=== PATIENT | female | born 1975 | race Caucasian/White ===

== ENCOUNTER → 2017-06-27 | Outpatient (CLI) | payer BC ==
--- NOTE | 2017-06-27 18:35 | MR ---
EXAMINATION TYPE: MR knee RT wo con DATE OF EXAM: 06/27/2017 COMPARISON: NONE HISTORY: 41 year-old female right knee pain, popped while walking 3-4 weeks ago TECHNIQUE: Multiplanar, multisequence imaging of the right knee is performed without IV contrast. FINDINGS: The ACL, PCL, and LCL complex are intact. There is some intermediate signal within the femoral attach ment fibers of the MCL suggesting remote sprain. The MCL is otherwise intact. Multilocular parameniscal cyst in front of the anterior root of the medial meniscus measuring 1 cm wi th a small oblique tear at the anterior root. Prominent degenerative signal within the body and poste rior horn medial meniscus without discrete meniscal tear seen. Mild to moderate irregular cartilage loss along the mid weightbearing aspect of the medial femoral co ndyle. Lateral meniscus appears intact and overall lateral compartment articular cartilage volume is maintai ashish though degenerative spurring is present. There is moderate volume loss of articular cartilage and moderate cartilage irregularity along both p atellar facets in the patellofemoral compartment with some adjacent 9 mm and smaller loose bodies in the lateral gutter of the suprapatellar pouch. Marginal spurring in the patellofemoral compartment wi th moderate irregular cartilage loss along the lateral trochlear facet as well. Small knee joint effusion. No significant Pantoja's cyst. Prominent 2.1 cm multilocular ganglion cyst at the origin of the lateral head gastrocnemius. Extensor mechanism is intact. There is focal edema in Hoffa's fat located inferior and lateral to the patella. Additional edema in the suprapatellar fat pad. Normal popliteal artery anatomy in muscle bulk. No suspicious bone marrow replacement. IMPRESSION: 1. Small oblique tear at the anterior root of the medial meniscus with adjacent 1 cm parameniscal cys t. Additional degenerative signal posterior horn and body of the medial meniscus. Mild overall medial compartmental osteoarthrosis. 2. Moderate overall patellofemoral compartment osteoarthrosis. 9 mm and smaller loose bodies in the lateral gutter of the suprapatellar pouch. 3. Focal edema in Hoffa's fat inferior and lateral to the patella and also within the suprapatellar f at pad. Findings can be seen in the setting of fat pad impingement syndrome.
== END | disposition home or self-care (01) ==
LOC: RADMRIMAIN 14:06
PROVIDERS: ATTEND Orthopaedic Surgery
DX: S83.241A Other tear of medial meniscus, current injury, right knee, initial encounter (principal); M17.11 Unilateral primary osteoarthritis, right knee

== ENCOUNTER → 2017-07-21 | Outpatient (CLI) | payer BC ==
[2017-07-21 10:56] LABS: Basophils # (A) 0.1 k/uL (0-0.2); Basophils % (A) 1 %; Eosinophils # (A) 0.3 k/uL (0-0.7); Eosinophils % (A) 3 %; HCT 43.2 % (34.0-46.0); HGB 14.2 gm/dL (11.4-16.0); Lymphocytes # (A) 2.7 k/uL (1.0-4.8); Lymphocytes % (A) 30 %; MCHC 32.9 g/dL (31.0-37.0); MCV 91.2 fL (80.0-100.0); Mean Platelet Volume 6.8; Monocytes # (A) 0.5 k/uL (0-1.0); Monocytes % (A) 6 %; Neutrophils # (A) 5.2 k/uL (1.3-7.7); Neutrophils % (A) 59 %; Platelet Count 299 k/uL (150-450); RBC 4.74 m/uL (3.80-5.40); RDW 12.8 % (11.5-15.5); WBC 8.9 k/uL (3.8-10.6)
[2017-07-21 11:06] LABS: Potassium 4.4 mmol/L (3.5-5.1)
== END | disposition home or self-care (01) ==
LOC: LABPAT 10:28
PROVIDERS: ATTEND Orthopaedic Surgery
DX: Z01.812 Encounter for preprocedural laboratory examination (principal); M23.91 Unspecified internal derangement of right knee
CPT/HCPCS: 36415; 80051; 85025

== ENCOUNTER 2017-07-24 06:49 | Day surgery (SDC) | payer BC ==
[2017-07-20 15:19] VITALS: BMI 30.8
--- NOTE | 2017-07-23 09:18 | HP ---
HISTORY AND PHYSICAL CHIEF COMPLAINT: Right knee pain. 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 She notes it popped and gave out while walking down a hallway at work. She notes intermittent giving way and locking since. It has been worse with weightbearing activities. She has tried medications with only partial temporary relief. PAST MEDICAL HISTORY: Past medical history is significant for depression. PAST SURGICAL HISTORY: Past surgical history is significant for tonsillectomy and extensor tendon repair of her hand. FAMILY HISTORY: Family history is significant for cancer and hypertension. SOCIAL HISTORY: Social history is significant for 1/2 pack per day tobacco use and social alcohol use. REVIEW OF SYSTEMS: Sixteen-point review of systems otherwise reviewed and is noncontributory. CURRENT MEDICATIONS: 1. Celexa. 2. Flexeril. 3. Ibuprofen. 4. Xanax. ALLERGIES: She denies drug allergies. PHYSICAL EXAMINATION: On examination, the patient is approximately 5 feet 10 inches, 230 pounds with a BMI of 33. HEENT exam is nonfocal. Neck is supple. She has painless passive motion of the right hip. Straight leg raise is negative. Active motion right knee -6 to 125 degrees of flexion. She has a moderate effusion. She has a palpable loose body along the lateral patellofemoral gutter. She is tender about the medial joint line and medial patellar facet. Collaterals are stable, Chuck's negative, Yolande's elicits medial pain. Her distal neurovascular exam appears to be intact in the right lower extremity. MRI report for the right knee 06/17/2017 shows an anterior medial meniscal tear and cyst along with a loose body in the lateral patellofemoral gutter. IMPRESSION: 1. Right knee internal derangement with symptomatic medial meniscal tear. 2. Right knee symptomatic loose body. RECOMMENDATIONS: I talked to the patient at length regarding her condition and treatment options. At this point, she is having persistent pain and mechanical symptoms that limit her. After thorough discussion, she opts to proceed with surgery. We will plan to proceed with arthroscopic evaluation with possible partial medial meniscectomy in addition to removal of loose body. Risks and benefits were discussed at length in layman's terms. We will likely perform that as an outpatient procedure. MMODL / IJN: [id number] /
[~2017-07-24 06:49] MED LIST: DEXAMETHASONE SOD PHOSPHATE 10 MG/ML 1 ML VIAL IV ONE; LACTATED RINGERS 1,000 ML IV SCH; LIDOCAINE 1% 20 ML VIAL (10MG/ML) FOR IV START INTRADERMA PRN; MIDAZOLAM 2 MG/2 ML VIAL IV PRN; MORPHINE SULFATE 4 MG/ML SYRINGE IV PRN; ONDANSETRON 4 MG/2 ML VIAL IVP ONE; SCOPOLAMINE 1.5MG/72HR PATCH TRANSDERM ONE; ceFAZolin IN SWFI 2 GM/20 ML SYRINGE IVP ONE
[2017-07-24 07:46] VITALS: RESP 16
[2017-07-24] MEDS ORDERED: PROPOFOL 10 MG/ML 20 ML VIAL IV ONE (07:58)
[2017-07-24] MEDS ORDERED: SUCCINYLCHOLINE CHLORIDE 100 MG/5 ML SYR IV ONE (07:58)
[2017-07-24] MEDS ORDERED: fentaNYL (PF) 50 MCG/ML 2 ML AMP ONE (07:58)
[2017-07-24] MEDS ORDERED: LIDOCAINE 1% INJ 10MG/ML (20 ML MDV) ONE (07:58)
[2017-07-24] MEDS ORDERED: MIDAZOLAM 2 MG/2 ML VIAL ONE (07:58)
[2017-07-24] MEDS ORDERED: EPINEPHrine (PF) 1 ML in SODIUM CHLORIDE 0.9% IRRIGATIO 3,000 ML IRRIGATION ONE (08:23)
--- NOTE | 2017-07-24 09:06 | P.OP ---
Date of Procedure: 07/24/17 Preoperative Diagnosis: Right knee internal derangement Postoperative Diagnosis: Right knee posterior lateral meniscal tear/grade 2/3 chondral injury distal medial femoral condyle/grade 2 chondral injury medial patellar facet/multiple loose bodies Procedure(s) Performed: Right knee arthroscopic partial lateral meniscectomy/medial femoral chondrectomy /patellar chondroplasty/loose body removal 1 x 1 x 0.75 cm Anesthesia: GETA Surgeon: Ramón Dhillon Estimated Blood Loss (ml): 10 Pathology: none sent Condition: stable Disposition: PACU Indications for Procedure: The patient's a 41-year-old female who presents with progressive right knee pain and mechanical symptoms despite conservative measures. Clinically she was noted to have evidence of a symptomatic loose body. A discussion of the risks and benefits of operative intervention versus continued conservative measures was made with patient. She opted to proceed with surgery. Operative risks to include infection, neurovascular injury, development of blood clots, possible incomplete resolution of symptoms, possible worsening symptoms and need for subsequent procedures was discussed. Informed consent was obtained. Operative Findings: As below Description of Procedure: The patient was brought to the operating room, and after induction of general anesthesia examined the right knee. Collaterals were stable, Chuck was negative, and posterior drawer was negative. The right lower extremity was prepped and draped in normal fashion. A superior lateral portal was made through a 3 mm skin incision superior and lateral to the patella. This was used for outflow. A lateral portal was made through a 5 mm vertical skin incision lateral to the patella tendon above the joint line. Diagnostic arthroscopy was performed. A medial portals made just medial to the patella tendon above the joint line. On inspection the medial compartment, the medial meniscus was stable and intact. A grade 2-3 chondral injury was noted involving the central portion of the distal medial femoral condyle. Loose chondral flaps were noted. These were contoured with both a shaver and an ablator. On inspection of the notch, anterior cruciate ligament appeared to be intact. On inspection of the lateral compartment, a small flap tear was noted involving the posterior most aspect of the lateral meniscus in the white -white junction. This to be back to stable base with a motorized shaver. The remaining lateral meniscus was stable and intact. Minimal degenerative changes involving the chondral surface in the lateral compartment was noted. On inspection patellofemoral articulation, a grade 2-3 chondral injury was noted involving medial patella facet with a loose chondral flap. This was debrided back to stable base with motorized shaver. On inspection the gutters, multiple loose bodies were noted the largest of which was 1 x 1 x 0.75 cm. I extended the medial incision to facilitate extraction of this fragment. It appeared be cartilaginous. A second small loose body was removed in a similar fashion. The knee was then thoroughly irrigated. The portals were closed with Steri-Strips. A sterile dressing was applied in addition to a compression stocking. Patient was awoken from general anesthesia and transferred to recovery room in good condition. Blood loss was estimated at 10 mL. No complications were incurred.
[2017-07-24 09:07] VITALS: TEMP 97.9
[2017-07-24] MEDS ORDERED: ONDANSETRON 4 MG/2 ML VIAL IVP ONE (09:07)
[2017-07-24] MEDS ORDERED: KETOROLAC 30 MG/ML 1 ML VIAL IVP ONE (09:07)
[2017-07-24] MEDS ORDERED: MORPHINE SULFATE 4 MG/ML SYRINGE IVP ONE ×2 (09:14→09:19)
[2017-07-24] MEDS ORDERED: MEPERIDINE 50 MG/ML SYRINGE IVP ONE ×2 (09:33→09:43)
[2017-07-24] MEDS ORDERED: LACTATED RINGERS 1,000 ML IV ONE (09:50)
[2017-07-24] MEDS ORDERED: HYDROcodone/APAP 5-325MG 1 EACH TAB PO ONE (10:35)
[2017-07-24 10:58] VITALS: BP 140/87; PULSE 84
== END 2017-07-24 11:26 | disposition home or self-care (01) ==
LOC: OR 06:49
PROVIDERS: ATTEND Orthopaedic Surgery
DX: S83.281A Other tear of lateral meniscus, current injury, right knee, initial encounter (principal); X58.XXXA Exposure to other specified factors, initial encounter; M23.41 Loose body in knee, right knee; F32.9 Major depressive disorder, single episode, unspecified; F17.210 Nicotine dependence, cigarettes, uncomplicated; Z79.1 Long term (current) use of non-steroidal anti-inflammatories (NSAID); Z79.899 Other long term (current) drug therapy
CPT/HCPCS: 81025; 29881; J2250; J2270; J1100; J2175; J2405; J0171; J2001; J3010; J1885; J0330; J2704; J0690

== ENCOUNTER 2020-10-14 12:10 | Emergency (ER) | payer OTHER ==
[2020-10-14 12:16] VITALS: BP 151/85; PULSE 89; RESP 20; TEMP 98.3
[2020-10-14] MEDS ORDERED: KETOROLAC 15 MG/ML 1 ML VIAL IM STA (12:29)
[2020-10-14] MEDS ORDERED: ORPHENADRINE 30 MG/ML 2 ML VIAL IM STA (12:29)
[2020-10-14] MEDS ORDERED: CYCLOBENZAPRINE 10MG STARTER 3 TAB BTL PO STA (12:36)
--- NOTE | 2020-10-14 12:36 | ED ---
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 Patient reports that she was trying to get away from a combative Patient who was attempting to kick her. Patient reports that she then jumped backwards causing her back to tighten up and spasm. Patient states that she was able to restrain the Patient. She does state that after this episode she noticed that any movement se was causing her back seize up and had pain with bending over. Patient reports that she is supposed to work the next 3 days. Patient states that she does have history of a slipped disc in the past which was treated with ultrasound therapy. She reports that her pain today seems more muscle spasm rather than her previous slipped disc. - Related Data Home Medications Medication Instructions Recorded Confirmed ALPRAZolam [Xanax] 0.25 mg PO HS PRN 07/20/17 07/20/17 Citalopram Hydrobromide [CeleXA] 20 mg PO DAILY 07/20/17 07/20/17 Cyclobenzaprine [Flexeril] 10 mg PO DAILY PRN 07/20/17 07/20/17 Ibuprofen [Motrin] 800 mg PO Q6H PRN 07/20/17 07/20/17 Previous Rx's Medication Instructions Recorded Hydrocodone/Acetaminophen [Lander 1 each PO Q6HR PRN #20 tab 07/24/17 5-325] Cyclobenzaprine [Flexeril] 10 mg PO TID #15 tab 10/14/20 Ketorolac [Toradol] 10 mg PO Q6HR #12 tab 10/14/20 Allergies Allergy/AdvReac Type Severity Reaction Status Date / Time No Known Allergies Allergy Verified 10/14/20 12:16 Review of Systems ROS Statement: Those systems with pertinent positive or pertinent negative responses have been documented in the HPI. ROS Other: All systems not noted in ROS Statement are negative. Past Medical History Past Medical History: No Reported History History of Any Multi-Drug Resistant Organisms: None Reported Past Surgical History: Tonsillectomy Additional Past Surgical History / Comment(s): RT EXTENSOR TENDON REPAIR Past Anesthesia/Blood Transfusion Reactions: No Reported Reaction Past Psychological History: Anxiety, Depression Smoking Status: Never smoker Past Alcohol Use History: Occasional Past Drug Use History: None Reported - Past Family History Mother Family Medical History: No Reported History General Exam - General Exam Comments Initial Comments: 45-year-old female. Alert and oriented. Limitations: no limitations General appearance: alert, in no apparent distress Head exam: Present: atraumatic, normocephalic, normal inspection Eye exam: Present: normal appearance, PERRL, EOMI. Absent: scleral icterus, conjunctival injection, periorbital swelling ENT exam: Present: normal exam, mucous membranes moist Neck exam: Present: normal inspection. Absent: tenderness, meningismus, lymphadenopathy Respiratory exam: Present: normal lung sounds bilaterally. Absent: respiratory distress, wheezes, rales, rhonchi, stridor Cardiovascular Exam: Present: regular rate, normal rhythm, normal heart sounds. Absent: systolic murmur, diastolic murmur, rubs, gallop, clicks GI/Abdominal exam: Present: soft, normal bowel sounds. Absent: distended, tenderness, guarding, rebound, rigid Extremities exam: Present: normal inspection, full ROM, normal capillary refill. Absent: tenderness, pedal edema, joint swelling, calf tenderness Back exam: Present: normal inspection, tenderness (Is tenderness over the right thoracic paraspinal muscles. No spinal tenderness. ). Absent: full ROM Neurological exam: Present: alert, oriented X3, CN II-XII intact Psychiatric exam: Present: normal affect, normal mood Skin exam: Present: warm, dry, intact, normal color. Absent: rash Course Vital Signs 10/14/20 12:13 Temperature 98.3 F Pulse Rate 89 Respiratory 20 Rate Blood Pressure 151/85 O2 Sat by Pulse 99 Oximetry Medical Decision Making - Medical Decision Making 35-year-old female presents to the ER after attempting to jump away from a combative Patient. She then resulted in back muscle spasm over the right side. She has no spinal tenderness. She has no saddle anesthesia or other red flag symptoms. Discussed and this time to treat the Patient conservatively with anti-inflammatory medication muscle relaxers. She was provided heating pack emergency department. I did advise the Patient week and have her have time off. Patient is advised to follow-up with orthopedic family centered specialist symptoms continue to persist.. Disposition Clinical Impression: Back spasm Disposition: HOME SELF-CARE Condition: Good Instructions (If sedation given, give patient instructions): Muscle Spasm (ED) Additional Instructions: Patient advised to alternate between heat and ice to help with back pain. Recommended following up with orthopedic back specialist. Patient to take anti- inflammatory medication and muscle relaxers as prescribed. Return to emergency department if any alarming signs or symptoms occur. Prescriptions: Cyclobenzaprine [Flexeril] 10 mg PO TID #15 tab Ketorolac [Toradol] 10 mg PO Q6HR #12 tab Is patient prescribed a controlled substance at d/c from ED?: No Referrals: Alesha Ogden MD [Primary Care Provider] - 1-2 days Luis E Coughlin DO [Doctor of Osteopathic Medicine] - 1-2 days Time of Disposition: 12:35
== END 2020-10-14 12:57 | disposition home or self-care (01) ==
LOC: EC 12:10
DX: M62.830 Muscle spasm of back (principal)
CPT/HCPCS: 99283; 96372 ×2; J2360; J1885

== ENCOUNTER → 2020-10-16 | Outpatient (CLI) | payer OTHER ==
--- NOTE | 2020-10-16 13:19 | XR ---
EXAM TYPE: LUMBAR SPINE X RAY SERIES COMPARISON: NONE HISTORY: Pain TECHNIQUE: 4 views are submitted. FINDINGS: Alignment is anatomic. The pedicles are intact. The transverse processes are intact. There is marianne re degenerative disc disease and facet arthropathy L5-S1. IMPRESSION: 1. Severe degenerative disc disease L5-S1.
--- NOTE | 2020-10-16 13:20 | XR ---
EXAMINATION TYPE: XR thoracic spine complete DATE OF EXAM: 10/16/2020 COMPARISON: NONE HISTORY: Pain TECHNIQUE: 3 views submitted FINDINGS: Alignment is anatomic. There is no compression deformities. Hypertrophic and degenerative change of the spine. IMPRESSION: 1. Multilevel degenerative disc disease.
== END | disposition home or self-care (01) ==
LOC: RADXRMAIN 12:44
PROVIDERS: ATTEND Emergency Medicine
DX: M51.34 Other intervertebral disc degeneration, thoracic region (principal); M51.37 Other intervertebral disc degeneration, lumbosacral region; M47.817 Spondylosis without myelopathy or radiculopathy, lumbosacral region
CPT/HCPCS: 72072; 72100

== ENCOUNTER → 2022-07-30 | Outpatient (CLI) | payer BC ==
--- NOTE | 2022-07-31 08:48 | MM ---
Reason for Exam: Screening (asymptomatic). Baseline mammogram. Patient History: Menarche at age 14. First Full-Term at age 22. Premenopausal. Currently using Hormonal Contraceptives, starting at age 20. Maternal aunt had breast cancer under age 50. Last menstrual period: 07/29/2022 Risk Values: Kaur 5 year model risk: 0.7%. NCI Lifetime model risk: 8.7%. Prior Study Comparison: Patient's first Mammogram. No prior studies available for comparison. Tissue Density: There are scattered fibroglandular densities. Findings: Analyzed By CAD. There is no suspicious group of microcalcifications or new suspicious mass in either breast. Bilateral intramammary lymph nodes identified. Overall Assessment: Benign, BI-RAD 2 Management: Screening Mammogram of both breasts in 1 year. A clinical breast exam by your physician is recommended on an annual basis and results should be correlated with mammographic findings. Electronically signed and approved by: Farhad Mcgregor D.O.
== END | disposition home or self-care (01) ==
LOC: RADMAMWWP 08:41
PROVIDERS: ATTEND Obstetrics & Gynecology
DX: Z12.31 Encounter for screening mammogram for malignant neoplasm of breast (principal); Z80.3 Family history of malignant neoplasm of breast
CPT/HCPCS: 77063; 77067

== ENCOUNTER → 2022-10-28 | Outpatient (CLI) | payer BC ==
[2022-10-29 05:23] LABS: HCT 40.9 % (37.2-46.3); HGB 13.6 d/dL (12.0-15.0); MCH 31.9 pg (27.0-32.0); MCHC 33.3 d/dL (32.0-37.0); NRBC Per 100 WBC 0 X 10*3/uL (0.00-0.01); Platelet Count 284 X 10*3/uL (140-440); RBC 4.26 X 10*6/uL (4.10-5.20); RDW 13.1 % (11.5-14.5); WBC 7.08 X 10*3/uL (4.50-10.00)
== END | disposition home or self-care (01) ==
LOC: LABPAT 13:20
PROVIDERS: ATTEND Obstetrics & Gynecology
DX: Z01.812 Encounter for preprocedural laboratory examination (principal); I10 Essential (primary) hypertension; N92.1 Excessive and frequent menstruation with irregular cycle; R94.31 Abnormal electrocardiogram [ECG] [EKG]
CPT/HCPCS: 85027; 93005

== ENCOUNTER 2022-10-31 09:09 | Day surgery (SDC) | payer BC ==
[~2022-10-31 09:09] MED LIST changes: -DEXAMETHASONE SOD PHOSPHATE 10 MG/ML 1 ML VIAL IV ONE; -LIDOCAINE 1% 20 ML VIAL (10MG/ML) FOR IV START INTRADERMA PRN; -MIDAZOLAM 2 MG/2 ML VIAL IV PRN; -MORPHINE SULFATE 4 MG/ML SYRINGE IV PRN; +Pre Op ABX Message 1 EACH MISC MISCELLANE ONE; +SCOPOLAMINE 1 MG/72 HR PATCH TRANSDERM ONE; -SCOPOLAMINE 1.5MG/72HR PATCH TRANSDERM ONE; -ceFAZolin IN SWFI 2 GM/20 ML SYRINGE IVP ONE
[2022-10-31] MEDS ORDERED: LACTATED RINGERS 1,000 ML IV ONE (09:24)
[2022-10-31] MEDS ORDERED: DEXAMETHASONE SOD PHOSPHATE 4 MG/ML 1 ML VIAL IVP ONE (09:55)
[2022-10-31] MEDS ORDERED: MIDAZOLAM 2 MG/2 ML VIAL IVP ONE (10:13)
[2022-10-31] MEDS ORDERED: MIDAZOLAM 2 MG/2 ML VIAL ONE (10:30)
[2022-10-31] MEDS ORDERED: KETOROLAC 15 MG/ML 1 ML VIAL ONE (10:30)
[2022-10-31] MEDS ORDERED: SUCCINYLCHOLINE CHLORIDE 200 MG/10 ML VIAL IV ONE (10:30)
[2022-10-31] MEDS ORDERED: fentaNYL (PF) 50 MCG/ML 2 ML AMP ONE (10:30)
[2022-10-31] MEDS ORDERED: PROPOFOL 10 MG/ML 20 ML VIAL IV ONE (10:30)
[2022-10-31] MEDS ORDERED: LIDOCAINE 2% INJ 20 MG/ML (2 ML VIAL) ONE (10:30)
[2022-10-31] MEDS ORDERED: KETOROLAC 15 MG/ML 1 ML VIAL IVP PRN (11:24)
[2022-10-31] MEDS ORDERED: diphenhydrAMINE 50 MG/ML 1 ML VIAL IVP PRN (11:24)
[2022-10-31] MEDS ORDERED: IBUPROFEN 600 MG TAB PO PRN (11:24)
[2022-10-31] MEDS ORDERED: METOCLOPRAMIDE 5 MG/ML 2 ML VIAL IVP PRN (11:24)
[2022-10-31] MEDS ORDERED: SIMETHICONE 80 MG CHEWABLE PO PRN (11:24)
[2022-10-31] MEDS ORDERED: ONDANSETRON 4 MG/2 ML VIAL IVP PRN (11:24)
[2022-10-31] MEDS: HYDROmorphone 0.5 MG/0.5 ML SYRINGE IVP PRN ×3 (11:28→12:09)
[2022-10-31 11:30] VITALS: TEMP 97.4
[2022-10-31] MEDS ORDERED: LACTATED RINGERS 1,000 ML IV SCH (11:30)
--- NOTE | 2022-10-31 11:34 | P.OP ---
Date of Procedure: 10/31/22 Preoperative Diagnosis: #1. Menometrorrhagia #2. Fibroid uterus Postoperative Diagnosis: Same Procedure(s) Performed: #1. Diagnostic hysteroscopy #2. Failed endometrial ablation Anesthesia: FINN Surgeon: Jerel Landeros Estimated Blood Loss (ml): 5 Urine output (ml): 50 Pathology: none sent Condition: stable Disposition: PACU Operative Findings: Preoperative pelvic examination demonstrated a roughly 5-6 week anteverted mobile normal shaped uterus though there was a palpable right lateral roughly 3- 4 cm fibroid. Intraoperatively, the cervix sounded to approximate 4 synovators while uterus sounded to approximately 10 cm. Dilation was carried out without difficulty to admit the diagnostic hysteroscope which was placed and the cavity and the and the cavity distended with normal saline. The bilateral tubal ostia were seen and there was no evidence of pathology though there was a slight bulge on the right side of the uterus consistent with the location of the fibroid. The patient was noted to have a relatively patulous cervix. The settings for the NovaSure tool where a length of 6 cm, a width of 3.57 m for a total power of 119 W. Multiple attempts were made to pass the cavity check with repositioning of the tenaculum and trial of a Allis clamp. The tool was exchanged for a new tool which was replaced within the cavity and multiple attempts were made with the second tool with inability to pass the cavity check. Attempts were made to seal the cervix using a petroleum gauze around the flange which failed as well. After approximately a dozen attempts to pass the cavity check between the 2 tools, the procedure was abandoned. There was no concern for the possibility of uterine perforation as the scope was replaced after multiple failures and the cavity appears entirely intact. The failure was thought to be secondary to the patulous nature of the cervix and inability to seal it adequately to contain the carbon dioxide. The patient is a borderline candidate for vaginal hysterectomy should become necessary. Description of Procedure: The patient was prepped and draped in usual fashion after general endotracheal anesthesia was induced by the anesthesiologist. A weighted speculum was placed and the bladder drained of approximately 50 mL of clear gauri urine. The anterior lip of the cervix was grasped with a single-tooth tenaculum which time the cervix was noted to be quite patulous. The uterus and cervix are sounded to 10 cm and 4 cm respectively. Serial dilation was carried out without difficulty to admit the diagnostic hysteroscope was placed within the in vitro cavity and the cavity distended with normal saline. The findings are as noted above with bilateral tubal ostia seen and no evidence of pathology. The scope was set aside and the NovaSure tool placed into the endometrial cavity, opened, and seated well. The settings are again as noted above with a length of 6.0 cm, a width of 3.57 m for a total power of 119 W. Several attempts were made to pass the cavity check applying pressure to the flange on the tool. After it failed, temperature made to reposition the single-tooth tenaculum on the anterior lip of the cervix to provide a better seal which also failed. The tool was replaced with a new NovaSure tool which was again placed into the cavity, opened, and seated well. The settings were unchanged. Multiple further attempts were made to pass the cavity check which failed. A petroleum gauze was applied firmly around the flange and the flange again reapplied to the cervix. This attempt failed as well. Allis clamps were applied to the anterior and posterior lip of the cervix in an attempt to better seal its which also failed. After perhaps a dozen attempts to pass the cavity check between both tools, the procedure was abandoned secondary to inability to pass the cavity check. There was no concern for uterine perforation has dilation was entirely uncomplicated. The diagnostic scope was replaced within the endometrial cavity and the cavity reexamined. There was no evidence of any damage within the uterine cavity. All instrumentation was removed. There was no significant ongoing bleeding from either the cervix or the multiple areas where the cervix was grasped with tenaculum and or Allis clamp. The patient is a borderline candidate for vaginal hysterectomy should it become necessary. Estimated blood loss for the case was approximate 5 mL. The only complication was the inability to complete the procedure. All sponge, instrument, and needle counts were correct. The patient tolerated the procedure well and proceeded to the recovery room in stable condition.
[2022-10-31 11:48] VITALS: RESP 16
[2022-10-31 13:00] VITALS: BP 125/83; PULSE 79
[2022-11-01] MEDS ORDERED: ACETAMINOPHEN TAB 325 MG TAB PO PRN (11:25)
== END 2022-10-31 13:20 | disposition home or self-care (01) ==
LOC: OR 09:09
PROVIDERS: ATTEND Obstetrics & Gynecology
DX: D25.9 Leiomyoma of uterus, unspecified (principal); I10 Essential (primary) hypertension; K21.9 Gastro-esophageal reflux disease without esophagitis; Z79.899 Other long term (current) drug therapy
CPT/HCPCS: 58555; 81025; J2250; J0330; J1100; J2405; J3010; J1885; J2704; J1170; J2001

== ENCOUNTER → 2023-04-15 | Outpatient (CLI) | payer BC ==
[2023-04-15 15:30] LABS: Blood Urea Nitrogen 10.4 mg/dL (9.0-27.0); Carbon Dioxide 24.7 mmol/L (21.6-31.8); Chloride 104 mmol/L (96-109); Glucose 89 mg/dL (70-110); Potassium 4.2 mmol/L (3.5-5.5); Sodium 139 mmol/L (135-145)
[2023-04-15 15:36] LABS: Basophils # (A) 0.08 X 10*3/uL (0.00-0.10); Basophils % (A) 1.4 %; Eosinophils # (A) 0.24 X 10*3/uL (0.04-0.35); Eosinophils % (A) 4.2 %; HCT 36.7 % (37.2-46.3); Lymphocytes % (A) 35.3 %; MCH 28.9 pg (27.0-32.0); MCHC 32.7 g/dL (32.0-37.0); MCV 88.4 FL (80.0-97.0); Mean Platelet Volume 9.4 FL (9.5-12.2); Monocytes # (A) 0.45 X 10*3/uL (0.20-1.00); Monocytes % (A) 7.9 %; NRBC Per 100 WBC 0 X 10*3/uL (0.00-0.01); Neutrophils # (A) 2.89 X 10*3/uL (1.80-7.70); Platelet Count 266 X 10*3/uL (140-440); RBC 4.15 X 10*6/uL (4.10-5.20); RDW 11.7 % (11.5-14.5); WBC 5.67 X 10*3/uL (4.50-10.00)
== END | disposition home or self-care (01) ==
LOC: LABPAT 11:33
PROVIDERS: ATTEND Obstetrics & Gynecology
DX: Z01.812 Encounter for preprocedural laboratory examination (principal); I10 Essential (primary) hypertension
CPT/HCPCS: 36415; 80051; 82565; 82947; 84520; 85025; 86850; 86900; 86901; 87086

== ENCOUNTER 2023-04-21 10:45 | Day surgery (SDC) | payer BC ==
[2023-04-16 11:01] VITALS: BMI 27.2
--- NOTE | 2023-04-21 07:37 | HP ---
HISTORY AND PHYSICAL DATE OF SCHEDULED SURGERY: 04/21/2023. HISTORY OF PRESENT ILLNESS: The patient is a 47-year-old 2, para 2-0-0-2, who presents to the office with a history of menometrorrhagia. She had a NovaSure ablation attempted several months ago, at which time we were unable to complete the procedure secondary to inability to pass the cavity check. The thought was that it was secondary to a patulous cervix. She continued to have irregular and heavy bleeding thereafter and had a trial of oral contraceptive pills, which caused greater than 2 weeks of continuous heavy bleeding. She has requested definitive therapy with hysterectomy, and previous examination has demonstrated the robotic approach to be most indicated. PAST MEDICAL HISTORY: Significant for hypertension. PAST SURGICAL HISTORY: Significant for diagnostic hysteroscopy, LEEP procedure, and a failed NovaSure ablation as noted above. There were no anesthetic concerns. OBSTETRICAL HISTORY: 2, para 2-0-0-2 with 2 term vaginal deliveries. GYNECOLOGIC HISTORY: Unremarkable with no history of any infections to include STDs. FAMILY HISTORY: Noncontributory. SOCIAL HISTORY: The patient is and denies any major social concerns. She is a nonsmoker. MEDICATIONS: Include: 1. Metoprolol ER 25 mg daily. 2. Ozempic injection subcutaneously weekly. ALLERGIES: No known drug allergies. REVIEW OF SYSTEMS: Confined to history of present illness. PHYSICAL EXAMINATION: VITAL SIGNS: Stable. The patient is afebrile. GENERAL: This is a well-developed, well-nourished white female, in no acute distress. HEART: Regular rhythm and rate without murmur. LUNGS: Clear to auscultation bilaterally in all foote. ABDOMEN: Nondistended, has normoactive bowel sounds, soft, nontender, and without any palpable masses, hepatosplenomegaly, or hernias. EXTREMITIES: Without any cyanosis, clubbing, or edema and are nontender to palpation bilaterally. PELVIC: Demonstrates normal external genitalia and BUS with normal vaginal mucosa and cervix. There is no cervical motion tenderness. Uterus is 5-6 weeks in size, anteverted, mobile, relatively normal in shape. There is a palpable right lateral 3-4 cm fibroid. The adnexa are normal nontender without mass bilaterally. ASSESSMENT AND PLAN: Menometrorrhagia: As noted above, attempted ablation failed and she has also failed medical management and therefore is requesting definitive treatment with hysterectomy. Examination bears out the best approach to be robotic. As a result, we will proceed with da Tami robotically-assisted laparoscopic hysterectomy with bilateral salpingectomy and diagnostic cystoscopy. The risks and complications of the procedure have been thoroughly discussed including the risks for bleeding, bleeding requiring transfusion, infection, and injury to local structures to specifically include the bowel, bladder, and ureters. We also went on to discuss injury unique to da Tami surgery to include thermal injury and vaginal cuff dehiscence. She has understood all of this and has agreed to proceed. We are scheduled for the above procedure on the morning of 04/21/2023. MMODL / IJN: [id number] /
[~2023-04-21 10:45] MED LIST changes: +DEXAMETHASONE SOD PHOSPHATE 4 MG/ML 1 ML VIAL IV ONE; +HYDROmorphone 0.5 MG/0.5 ML SYRINGE IVP PRN; -LACTATED RINGERS 1,000 ML IV SCH; +LIDOCAINE 1% (10MG/ML) FOR IV START INTRADERMA PRN; -Pre Op ABX Message 1 EACH MISC MISCELLANE ONE; +droPERidol 5 MG/2 ML VIAL IVP ONE
[2023-04-21] MEDS: LACTATED RINGERS 1,000 ML IV SCH ×2 (12:46→16:50)
[2023-04-21] MEDS: FAMOTIDINE 20 MG/2 ML VIAL IV ONE ×2 (13:05→17:46)
[2023-04-21] MEDS ORDERED: ROCURONIUM 10 MG/ML (5 ML VIAL) IV ONE (13:39)
[2023-04-21] MEDS ORDERED: KETOROLAC 30 MG/ML 1 ML VIAL ONE (13:39)
[2023-04-21] MEDS ORDERED: HYDROmorphone (PF) 1 MG/ML ONE (13:39)
[2023-04-21] MEDS ORDERED: SUCCINYLCHOLINE CHLORIDE 200 MG/10 ML VIAL IV ONE (13:39)
[2023-04-21] MEDS ORDERED: GLYCOPYRROLATE 0.2 MG/ML 2 ML VIAL ONE (13:39)
[2023-04-21] MEDS ORDERED: MIDAZOLAM 2 MG/2 ML VIAL ONE (13:39)
[2023-04-21] MEDS ORDERED: ACETAMINOPHEN IV (For NPO) 1,000 MG/100 ML VIAL ONE (13:39)
[2023-04-21] MEDS ORDERED: NEOSTIGMINE 1 MG/ML 10 ML VIAL ONE (13:39)
[2023-04-21] MEDS ORDERED: PROPOFOL 10 MG/ML 20 ML VIAL IV ONE (13:39)
[2023-04-21] MEDS ORDERED: fentaNYL (PF) 50 MCG/ML 2 ML AMP ONE (13:39)
[2023-04-21] MEDS ORDERED: LIDOCAINE 1% INJ 10MG/ML (20 ML MDV) ONE (13:39)
[2023-04-21] MEDS ORDERED: BUPIVACAINE (PF) 0.25% 10 ML VIAL SQ ONE ×2 (14:18→15:54)
[2023-04-21] MEDS ORDERED: diphenhydrAMINE 50 MG/ML 1 ML VIAL IVP PRN (15:48)
[2023-04-21] MEDS ORDERED: ONDANSETRON 4 MG/2 ML VIAL IVP PRN (15:48)
[2023-04-21] MEDS ORDERED: METOCLOPRAMIDE 5 MG/ML 2 ML VIAL IVP PRN (15:48)
[2023-04-21] MEDS ORDERED: KETOROLAC 15 MG/ML 1 ML VIAL IVP PRN (15:48)
[2023-04-21] MEDS ORDERED: SIMETHICONE 80 MG CHEWABLE PO PRN (15:48)
[2023-04-21] MEDS ORDERED: Acetaminophen-Codeine 300-30mg TAB PO PRN (15:48)
--- NOTE | 2023-04-21 16:00 | P.OP ---
Date of Procedure: 04/21/23 Preoperative Diagnosis: 1. Menometrorrhagia #2. Fibroid uterus Postoperative Diagnosis: Same Procedure(s) Performed: #1. Da Tami robotically assisted laparoscopic hysterectomy with bilateral salpingectomy #2. Diagnostic cystoscopy Anesthesia: FINN Surgeon: Jerel Landeros House Mother #1: Kimberli Oshea Estimated Blood Loss (ml): 50 IV fluids (ml): 1,000 Urine output (ml): 100 Pathology: other (Uterus and bilateral fallopian tubes) Condition: stable Disposition: PACU Operative Findings: Intraoperatively, the uterus was noted to be significantly larger than appreciated on exam. It did sound to approximately 11 cm. The tubes and ovaries were normal to inspection. The uterus itself was quite bulky with likely multiple fibroids. There was no evidence of any other pathology in the pelvis to include endometriosis. The bladder was undamaged both from a cystoscopic and laparoscopic perspective and the bilateral ureteral hemlocks were noted to be peristalsing under cystoscopy. Description of Procedure: The patient was prepped and draped in usual fashion after general endotracheal anesthesia was administered by the anesthesiologist. A weighted speculum was placed and the anterior lip of the cervix grasped with a single-tooth tenaculum. Uterus sounded to 10-11 cm. Serial dilation was carried out to admit a [facility] uterine manipulator with a large cervical cup. This was placed in standard fashion. The bladder was then catheterized with a Trujillo catheter. I attended to the abdomen at which time a site was selected approximately 3-4 cm is above the umbilicus in the midline where an 8 mm incision was made in the transverse plane. An 8 mm optical da Tami trocar was placed under direct visualization and the pneumoperitoneum instilled. The patient was placed in steep Trendelenburg positioning and the table lowered completely. A site was selected approximately 12 cm lateral to the optical port and 3-4 cm inferior to it in the right lower quadrant where an 8 mm incision was made in a transverse plane allowing insertion of an 8 mm da Tami trocar under direct visualization. A myringotomy trocar was placed in the left lower quadrant. The distance between the left quadrant in optical trocar was divided in half and a site selected approximately 4 cm above the optical trocar where a 10 mm incision was made and a 1011 assistant professor of theater port inserted under direct visualization without difficulty. The robot was then docked to the patient in the left arm was loaded with a [place] bipolar cautery forceps while the right arm was loaded with a mono and bipolar cautery scissors. The left fallopian tube was divided from the ovary beneath it to the level of the uterus at which time the utero-ovarian ligament and round ligament were thoroughly cauterized and cut under cautery with the ovary left in situ. The uterine vasculature was skeletonized on this side. The bladder peritoneum was elevated and opened to the midline. The underlying tissues were then dissected sharply using the bipolar cautery scissors. The blood vessels were noted and cauterized to some extent. Prior to finishing the pedicles on the left hand side the decision was made to proceed to the right hand side where similar operations were carried out without difficulty. The bladder peritoneum was connected anteriorly and the underlying tissues dissected sharply with the bipolar cautery scissors. The bladder was then easily reflected distally and the vaginal cup was easily noted. After ensuring that the uterine vasculature was cauterized and divided on both sides, the vaginal cuff was opened sharply with the bipolar cautery scissors and the anterior cuff and there was continued around following the line of the cervical cup to the posterior and then back around to the anterior dividing the uterus from the patient. There was some difficulty in delivering the uterus as it was significantly bulkier than anticipated. Ultimately it was able to be delivered intact through the vagina. Then returned to the console and replaced the scissors with a laparoscopic suturing device. A stitch of 0 Stratafix suture was passed and the abdomen and the vaginal cuff was closed in standard fashion from angle to angle with to return stitches on the left side. Thorough irrigation was carried out and hemostasis was noted to be excellent. Then returned to the patient and remove the Trujillo catheter, placed a diagnostic cystoscope and filled the bladder with sterile water. The dome of the bladder wasn't damaged both from the cystoscopic and laparoscopic perspective. Both ureteral adnexa were examined and noted to be peristalsing normally. All instrumentation was then removed and the Trujillo catheter replaced. The robot was undocked and the trochars were removed after evacuating the entire pneumoperitoneum. The 4 incisions were closed with interrupted subcuticular stitches of 4-0 Vicryl followed by placement of half-inch Steri-Strips placed with Mastisol. The incisions were infused with a total of 10 mL of quarter percent Marcaine equally distributed among the 4 incisions. Estimated blood loss for the case was approximately 50 mL. There were no complications. All sponge, instrument, and needle counts were correct. The patient tolerated the procedure well and proceeded to the recovery room in stable condition.
[2023-04-21] MEDS ORDERED: ONDANSETRON 4 MG/2 ML VIAL IVP ONE (16:53)
[2023-04-21] MEDS: Acetaminophen-Codeine 300-30mg TAB PO PRN (20:23)
[2023-04-21] MEDS ORDERED: HYDROmorphone 0.5 MG/0.5 ML SYRINGE IVP PRN (20:45)
[2023-04-21] MEDS: SENNOSIDES-DOCUSATE SODIUM 1 EACH TAB PO SCH (22:57)
[2023-04-22] MEDS: IBUPROFEN 600 MG TAB PO PRN ×2 (05:23→11:30)
[2023-04-22] MEDS: LACTATED RINGERS 1,000 ML IV SCH ×2 (05:26→08:12)
[2023-04-22 07:39] LABS: Basophils % (A) 0 %; Eosinophils # (A) 0.1 k/uL (0-0.7); Eosinophils % (A) 1 %; HCT 32.5 % (34.0-46.0); Lymphocytes % (A) 21 %; MCH 29.6 pg (25.0-35.0); MCHC 33.9 g/dL (31.0-37.0); MCV 87.5 fL (80.0-100.0); Mean Platelet Volume 7.7; Monocytes # (A) 0.6 k/uL (0-1.0); Monocytes % (A) 6 %; Neutrophils % (A) 71 %; Platelet Count 222 k/uL (150-450); RBC 3.71 m/uL (3.80-5.40); RDW 12.2 % (11.5-15.5); WBC 9.9 k/uL (3.8-10.6)
[2023-04-22] MEDS: SENNOSIDES-DOCUSATE SODIUM 1 EACH TAB PO SCH (08:22)
[2023-04-22] MEDS: Acetaminophen-Codeine 300-30mg TAB PO PRN (08:22)
[2023-04-22 08:55] VITALS: BP 101/67; PULSE 86; RESP 16; TEMP 98
--- NOTE | 2023-04-22 09:22 | P.DS ---
Providers Expected date of discharge: 04/22/23 Attending physician: Jerel Landeros Primary care physician: Karel Alatorre - Discharge Diagnosis(es) (1) Fibroid uterus Current Visit: Yes Status: Acute (2) Menometrorrhagia Current Visit: Yes Status: Acute Hospital Course: The patient is a 47-year-old 2 para 2001 who presented the office with ongoing history of menometrorrhagia and known fibroids. She had an attempt at NovaSure endometrial ablation which failed as we're unable to pass the cavity check. She continued to have bleeding, she requested definitive therapy and was thought to be best a candidate for a da Tami approach. She was taken to the operating room where she underwent da Tami robotically assisted laparoscopic hysterectomy with bilateral salpingectomy and diagnostic cystoscopy in an uncomplicated fashion. Her postoperative course was unremarkable with vital signs remaining stable and her temperature was afebrile throughout. She did have moderate discomfort but also declined to have Duramorph for pain relief. She was deemed stable for discharge by the afternoon of postoperative day #1 and was discharged home to follow-up in the office in 2 weeks for incision checks and 8 weeks routinely. Discharge instructions included calling for any significantly increased bleeding, fever, incisional complaints, GI complaints, bladder complaints, or anything else that concerned her. She was most important instructed to have nothing in the vagina for at least 8 weeks time to include intercourse. She understood all of her instructions and agrees follow up as noted above. Discharge medications included any normal home medications as well as a prescription for Tylenol 3, 1-2 by mouth every 6 hours when necessary pain, #20 dispensed with no refills. Discharge hemoglobin and hematocrit were 11.0 and 32.5 respectively. Procedures: #1. Da Tami robotically assisted laparoscopic hysterectomy with bilateral salpingectomy #2. Diagnostic cystoscopy Patient Condition at Discharge: Stable Plan - Discharge Summary Discharge Rx Participant: No New Discharge Prescriptions: No Action Pantoprazole [Protonix] 40 mg PO DAILY Varenicline [Chantix Continuing Pack] 1 mg PO DIRECTED Metoprolol Succinate (ER) [Toprol Xl] 50 mg PO DAILY Discharge Medication List Metoprolol Succinate (ER) [Toprol Xl] 50 mg PO DAILY 10/27/22 [History] Pantoprazole [Protonix] 40 mg PO DAILY 04/16/23 [History] Varenicline [Chantix Continuing Pack] 1 mg PO DIRECTED 04/16/23 [History] Follow up Appointment(s)/Referral(s): Jerel Landeros MD [STAFF PHYSICIAN] - 2 Weeks Discharge Disposition: HOME SELF-CARE
[2023-04-22] MEDS ORDERED: ACETAMINOPHEN TAB 325 MG TAB PO PRN (15:50)
== END 2023-04-22 11:42 | disposition home or self-care (01) ==
LOC: OR 10:45 → 4FBP 15:54 → OR 04-22 11:42
PROVIDERS: ATTEND Obstetrics & Gynecology
DX: D25.1 Intramural leiomyoma of uterus (principal); N92.1 Excessive and frequent menstruation with irregular cycle; K13.79 Other lesions of oral mucosa; I10 Essential (primary) hypertension; Z79.899 Other long term (current) drug therapy
CPT/HCPCS: 58571; S2900; 81025; 85025; 88307